=== PATIENT | male | born 2000 | race American Indian/Alaskan Native ===

== ENCOUNTER 2021-12-02 07:07 | Emergency (ER) | payer OTHER, MEDICAID ==
--- NOTE | 2021-12-02 08:00 | Emergency Department Report ---
ED General Adult HPI - General Chief complaint: Seizure Stated complaint: SEIZURE Time Seen by Provider: 12/02/21 07:32 Source: EMS Mode of arrival: Stretcher Limitations: Altered Mental Status - History of Present Illness Initial comments: Patient presents to the emergency department the chief complaint of seizure activity. Patient has a history of seizures and also has hydrocephalus with shunt placement. Per EMS the patient had 4 seizures today. Patient was given 2 mg Ativan prior to arrival to the ED. Patient is initially somnolent on exam bu t easily arousable. On reevaluation of the patient at approximately 8:35 AM I spoke to his father who is now at the bedside and he states the patient has been out of his Carbatrol for the last 2 days which may have contributed to his seizure activity today. He also takes Keppra 1000 mg twice daily. Per the patient's father the patient normally does not have seizures so thus the concern for today's activity. -: Sudden Severity scale (0 -10): 0 Consistency: now resolved Improves with: none Worsens with: none Associated Symptoms: denies other symptoms Treatments Prior to Arrival: none - Related Data Previous Rx's Medication Instructions Recorded Last Taken Type carBAMazepine [Carbatrol] 100 mg PO BID #180 12/02/21 Unknown Rx Allergies Allergy/AdvReac Type Severity Reaction Status Date / Time No Known Allergies Allergy Verified 12/02/21 07:43 ED Review of Systems ROS: Stated complaint: SEIZURE Other details as noted in HPI Comment: All other systems reviewed and negative Constitutional: denies: chills, fever Eyes: denies: eye pain, eye discharge, vision change ENT: denies: ear pain, throat pain Respiratory: denies: cough, shortness of breath, wheezing Cardiovascular: denies: chest pain, palpitations Endocrine: no symptoms reported Gastrointestinal: denies: abdominal pain, nausea, diarrhea Genitourinary: denies: urgency, dysuria Musculoskeletal: denies: back pain, joint swelling, arthralgia Skin: denies: rash, lesions Neurological: denies: headache, weakness, paresthesias Psychiatric: denies: anxiety, depression Hematological/Lymphatic: denies: easy bleeding, easy bruising ED Past Medical Hx - Past Medical History Previous Medical History?: Yes Hx Seizures: Yes Additional medical history: hydrocephalus - Surgical History Additional Surgical History: vascular shunt - Social History Smoking Status: Unknown if ever smoked - Medications Home Medications: Home Medications Medication Instructions Recorded Confirmed Last Taken Type carBAMazepine [Carbatrol] 100 mg PO BID #180 12/02/21 Unknown Rx ED Physical Exam - General Limitations: Altered Mental Status General appearance: alert, in no apparent distress, other (Patient is somnolent secondary to benzodiazepine usage but is easily arousable on exam) - Head Head exam: Present: atraumatic, normocephalic - Eye Eye exam: Present: normal appearance - ENT ENT exam: Present: mucous membranes moist - Neck Neck exam: Present: normal inspection - Respiratory Respiratory exam: Present: normal lung sounds bilaterally. Absent: respiratory distress - Cardiovascular Cardiovascular Exam: Present: regular rate, normal rhythm. Absent: systolic murmur, diastolic murmur, rubs, gallop - GI/Abdominal GI/Abdominal exam: Present: soft, normal bowel sounds. Absent: distended, tenderness - Rectal Rectal exam: Present: deferred - Extremities Exam Extremities exam: Present: normal inspection - Back Exam Back exam: Present: normal inspection - Neurological Exam Neurological exam: Present: alert, oriented X3, CN II-XII intact. Absent: motor sensory deficit - Psychiatric Psychiatric exam: Present: normal affect, normal mood - Skin Skin exam: Present: warm, dry, intact, normal color. Absent: rash ED Course Vital Signs 12/02/21 12/02/21 12/02/21 07:16 07:22 07:31 Temperature Pulse Rate 92 H 93 H 88 Respiratory 16 18 16 Rate Blood Pressure 97/51 Blood Pressure 70/40 [Left] O2 Sat by Pulse 97 95 94 Oximetry 12/02/21 12/02/21 07:34 07:35 Temperature 98.3 F Pulse Rate Respiratory Rate Blood Pressure Blood Pressure [Left] O2 Sat by Pulse 100 Oximetry ED Medical Decision Making - Radiology Data Radiology results: report reviewed - Medical Decision Making Discussed findings of CT of the head and shunt series with the patient's father Patient has no signs of hydrocephalus on CT of the brain. There is concerned that there is a segment of the shunt that is not communicating with the distal aspect even in light of their not being hydrocephalus. This was discussed in detail with the patient's father we did print out the results of the imaging and bring the CD for him to present to the patient's neurosurgeon. Patient was without seizure activity in the ED Critical care attestation.: If time is entered above; I have spent that time in minutes in the direct care of this critically ill patient, excluding procedure time. ED Disposition Clinical Impression: Seizure Disposition: 01 HOME / SELF CARE / HOMELESS Is pt being admited?: No Does the pt Need Aspirin: No Condition: Stable Instructions: Seizure, Adult Additional Instructions: return if worse Prescriptions: carBAMazepine [Carbatrol] 100 mg PO BID #180 Referrals: IONA CORDOVA MD [Staff Physician] - 3-5 Days Time of Disposition: 10:02
--- NOTE | 2021-12-02 08:26 | Cat Scan Report ---
CT HEAD WITHOUT CONTRAST INDICATION / CLINICAL INFORMATION: seizure with H/O hydrocephalus. TECHNIQUE: Axial imaging performed from the skull apex through the skull base without the use of cont rast. Sagittal and coronal reformatted images. All CT scans at this location are performed using CT dose reduction for ALARA by means of automated exposure control. COMPARISON: None available. FINDINGS: CEREBRAL PARENCHYMA: No acute parenchymal abnormality is identified. There is mild atrophy of the rig ht cerebral hemisphere. Focal encephalomalacia in the right ballard radiata region measures up to 2.0 x 1.0 cm in axial plane. HEMORRHAGE: None. EXTRA-AXIAL SPACES: Normal in size and morphology for the patient's age. VENTRICULAR SYSTEM: Normal in size and morphology for the patient's age. A left parietal ventriculope ritoneal shunt terminates just within the posterior aspect of the left lateral ventricle. No hydrocep halus. MIDLINE SHIFT OR HERNIATION: None. CEREBELLUM / BRAINSTEM: No significant abnormality. CALVARIUM: No significant abnormality. ORBITS: Normal as visualized. PARANASAL SINUSES / MASTOID AIR CELLS: Normal as visualized. SOFT TISSUES of HEAD: No significant abnormality. ADDITIONAL FINDINGS: None. IMPRESSION: No acute intracranial abnormality. No evidence for hydrocephalus. Mild atrophy of the right cerebral hemisphere is demonstrated. Focal encephalomalacia in the right co marcell radiata likely represents a chronic infarct or other chronic insult. Signer Name: Hunter Aceves Jr, MD Signed: 12/02/2021 8:22 AM Workstation Name: [id number]
--- NOTE | 2021-12-02 09:01 | XRay Report ---
SKULL 2 VIEWS CHEST AP VIEW ABDOMEN AP VIEW INDICATION: shunt series. COMPARISON: None. IMPRESSION: Ventriculoperitoneal shunt extends from the left parietal region descending the left selin e of the neck andthorax to the upper abdomen. The distal aspect of the shunt is coiled in the right u pper quadrant. There is suggestion of a focal segment of shunt discontinuity in the left upper neck w hich is best demonstrated on the lateral view of the calvarium. Please correlate with the images. The remainder of the shunt appears intact. No acute process is identified in the chest or abdomen. Signer Name: Hunter Aceves Jr, MD Signed: 12/02/2021 8:56 AM Workstation Name: [id number]
[2021-12-02 10:44] VITALS: BP 122/83
== END 2021-12-02 11:07 | disposition home or self-care (01) ==
LOC: ED 07:07
DX: R56.9 Unspecified convulsions (principal)
CPT/HCPCS: 70250; 70450; 71045; 74018; 99284